=== PATIENT | female | born 1980 | race Caucasian/White ===

== ENCOUNTER 2017-04-11 12:43 | Emergency (ER) | payer OTHER ==
[~2017-04-11] VITALS: Ht 152.4 cm; Wt 75.0 kg
[2017-04-11 12:44] VITALS: BP 137/79; PULSE 84; RESP 16; TEMP 97.9; O2SAT 99
--- NOTE | 2017-04-11 13:14 | PD ---
Physical Exam Time Seen by Provider: 13:12 Narrative 36yo F c/o sore throat, coughing, chest tightness, and headache x 1 week. Denies SOB. Unknown fever. Patient seen in triage. VS reviewed. Patient awaiting bed placement. Data Data Last Documented VS Vital Signs Date Time Temp Pulse Resp B/P Pulse Ox O2 Delivery O2 Flow Rate FiO2 04/11/17 12:44 97.9 84 16 137/79 99 MDM Supervised Visit with CHARLES: Rita Brunson Apr 11, 2017 13:14
--- NOTE | 2017-04-11 13:38 | RADRPT ---
EXAM DATE/TIME: 04/11/2017 13:32 [facility] COMPARISON: No previous studies available for comparison. INDICATIONS : Cough. MEDICAL HISTORY : None. SURGICAL HISTORY : None. ENCOUNTER: Initial ACUITY: 1 day PAIN SCORE: 0/10 LOCATION: Bilateral chest FINDINGS: Single PA view of the chest demonstrates a normal-sized cardiac silhouette. No effusion, consolidatio n, or pneumothorax is visualized. The bones and soft tissues demonstrate no acute abnormality. CONCLUSION: No acute cardiopulmonary abnormality is identified. Jemal Ross MD on April 11, 2017 at 13:35 Board Certified Radiologist. This report was verified electronically.
== END 2017-04-11 18:48 | disposition left against medical advice (07) ==
LOC: NED 12:43
DX: R05 Cough (principal); R07.89 Other chest pain
CPT/HCPCS: 71010; 99281